=== PATIENT | female | born 1980 | race African-American/Black ===

== ENCOUNTER 2019-10-19 13:13 | Emergency (ER) | payer OTHER ==
[~2019-10-19] VITALS: Ht 175.3 cm; Wt 82.0 kg
[2019-10-19 13:41] VITALS: BP 159/98
[2019-10-19] MEDS ORDERED: IBUPROFEN 600MG TABLET PO ONE (14:00)
[2019-10-19] MEDS ORDERED: HYDROCODONE/ACETAMINOPHEN 5/325MG TABLET PO ONE (14:00)
== END 2019-10-19 16:11 | disposition home or self-care (01) ==
LOC: ER 14:54
DX: M25.561 Pain in right knee (principal); Z98.890 Other specified postprocedural states; W10.8XXA Fall (on) (from) other stairs and steps, initial encounter; Y93.89 Activity, other specified; Y92.018 Other place in single-family (private) house as the place of occurrence of the external cause
CPT/HCPCS: 73564; 99283; L1830